=== PATIENT | female | born 1980 | race Caucasian/White ===

== ENCOUNTER 2022-04-25 08:00 | Outpatient (CLI) | payer OTHER ==
[2022-04-25 14:23] LABS: BILIRUBIN,URINE NEGATIVE (NEGATIVE); GLUCOSE, URINE (UA) NEGATIVE (NEGATIVE); KETONES,URINE (UA) NEGATIVE (NEGATIVE); LEUKOCYTE ESTERASE, URINE NEGATIVE (NEGATIVE); NITRITE,URINE NEGATIVE (NEGATIVE); OCCULT BLOOD,URINE NEGATIVE (NEGATIVE); PROTEIN,URINE NEGATIVE (NEGATIVE); UROBILINOGEN,URINE 0.2 (NORMAL) E.U./dL (NORMAL)
[2022-04-25 14:36] LABS: BACTERIA,URINE Rare /HPF (None Seen); CLARITY,URINE CLOUDY (CLEAR); RBC,URINE 0-5 /HPF (0-5); SQUAMOUS EPITHELIAL CELL,UR MOD Squamous (<= Few)
[2022-04-25 22:15] LABS: BACTERIAL VAGINOSIS DNA NEGATIVE (NEGATIVE); CANDIDA GLABRATA DNA NEGATIVE (NEGATIVE); CANDIDA GROUP DNA NEGATIVE (NEGATIVE); CANDIDA KRUSEI DNA NEGATIVE (NEGATIVE); TRICHOMONAS VAGINALIS DNA NEGATIVE (NEGATIVE)
== END 2022-04-25 23:59 | disposition home or self-care (01) ==
LOC: LAB.S 08:00
PROVIDERS: ATTEND Physician Assistant Medical
DX: R39.15 Urgency of urination (principal); N89.8 Other specified noninflammatory disorders of vagina
CPT/HCPCS: 81001; 81514; 87086

== ENCOUNTER 2022-05-23 05:10 | Emergency (ER) | payer OTHER ==
[2022-05-23 05:22] VITALS: BP 158/82
[2022-05-23] MEDS ORDERED: BUPIVACAINE 0.5% PF 10 ML VIAL SUBQ STA (05:46)
[2022-05-23] MEDS ORDERED: BUPIVACAINE 0.5% PF 30 ML VIAL ONE (05:58)
--- NOTE | 2022-05-23 06:08 | ED Physician Documentation ---
History of Present Illness - Stated complaint Stated Complaint: DIARRHEA/FEMALE - Chief complaint Chief Complaint: Abd Pain - History obtained from History obtained from: Patient - History of Present Illness Timing: How many hours ago (48) - Additonal information Additional information: 41-year-old Brittany Fitch has developed acute diarrhea and she has had this for several days and she has developed a thrombosed hemorrhoid. She believes this started 48 hours ago. She is in tremendous pain. She believes she has been able to stay hydrated but she is not able to control the pain. She can feel a lump that is hard Review of Systems Constitutional: denies: Fever Nose: denies: Congestion Throat: denies: Sore throat Respiratory: denies: Cough GI: reports: Nausea, Diarrhea. denies: Abdominal Pain, Vomiting PD PAST MEDICAL HISTORY - Past Medical History Past Medical History: No Cardiovascular: None Respiratory: None Neuro: None Endocrine/Autoimmune: None GI: None SKIDDER OPERATOR: None : None HEENT: None Psych: None Musculoskeletal: None Derm: None - Past Surgical History Past Surgical History: Yes Ortho: Other /SKIDDER OPERATOR: section, Tubal ligation - Present Medications Home Medications: Ambulatory Orders Medication Instructions Recorded Confirmed HYDROcod/ACETAM 5/325 [Latham 5/325] 1 - 2 tablet PO Q6H PRN #14 tablet 05/23/22 - Allergies Allergies/Adverse Reactions: Allergies Allergy/AdvReac Type Severity Reaction Status Date / Time IV contrast dye AdvReac Anaphylaxis Uncoded 05/23/22 05:23 - Social History Does the pt smoke?: No Smoking Status: Never smoker Does the pt drink ETOH?: No Does the pt have substance abuse?: No - Immunizations Immunizations are current?: Yes - POLST Patient has POLST: No PD ED PE NORMAL - Vitals Vital signs reviewed: Yes (tachy and hypertensive ) - General General: Alert and oriented X 3, No acute distress, Well developed/nourished - HEENT HEENT: Atraumatic, PERRL, EOMI - Respiratory Respiratory: No respiratory distress - Rectal Rectal: Other (With Winnie and Mildred as counter sales person the patient's rectum is examined and she does have a thrombosed hemorrhoid at 12:00. The mass is firm and tender.) - Derm Derm: Normal color, Warm and dry, No rash - Extremities Extremities: No deformity, No edema - Neuro Neuro: Alert and oriented X 3, surveyor instrument assistant 2-12 intact, No motor deficit, No sensory deficit, Normal speech Eye Opening: Spontaneous Motor: Obeys Commands Verbal: Oriented GCS Score: 15 - Psych Psych: Normal mood, Normal affect Results - Vitals Vitals: Vital Signs - 24 hr 05/23/22 05/23/22 05:19 06:13 Temperature 36.4 C L Heart Rate 103 H Respiratory 17 17 Rate Blood Pressure 158/82 H O2 Saturation 96 Oxygen O2 Source Room air Procedures - General procedure General procedure: Thrombosed hemorrhoid: With povidine iodine the area is cleaned and with the use of 0.5% bupivicaine for anesthesia the hemorroid is injected from the outside margin radially. A #11 blade is used in incise the hemorrhoid radially. A curved hemostat is used to express the contents of the hemorrhoid and the internal portion of the hemorrhoid is cleaned. Hemostasis is achieved and the patient has some relief of pain. PD MEDICAL DECISION MAKING - ED course Complexity details: considered differential, d/w patient ED course: 41-year-old female with a thrombosed hemorrhoid is in significant pain we were able to use 1/2% bupivacaine and expressed the contents of the thrombosed hemorrhoid with some improvement in the patient's pain. Will provide some Latham for pain control. Departure - Departure Disposition: 01 Home, Self Care Clinical Impression: Thrombosed external hemorrhoid Condition: Stable Instructions: Hemorrhoids Thrombosed, ED Hemorrhoids Follow-Up: Elle Plascencia PA-C [Provider Admit Priv/Credential] - Prescriptions: HYDROcod/ACETAM 5/325 [Latham 5/325] 1 - 2 tablet PO Q6H PRN #14 tablet PRN Reason: Pain Comments: Brittany today it looks like you have had a thrombosed external hemorrhoid and usually procedure to remove the clot relieves the pain. We have provided some additional pain medication as this is usually still somewhat painful. It has been E scribed to the [facility] in [place].
[2022-05-23] MEDS ORDERED: HYDROcod/ACET 5/325 Prepack 4 PO STA (06:27)
--- OUTSIDE RECORDS SUMMARY | 2022-05-24 16:21 | EXTERNAL MEDICAL SUMMARY RPT | Continuity of Care Document ---
:1980 Author Organization [facility] Address [address] [place] [address] Phone Allergies No information. Encounters No information. Functional Status No information. Immunizations No information. Medications No information. Problems No information. Procedures date description facility +0000 POC URINALYSIS DIP [facility] Results/Labs No information. Social History date description facility +0000 Never smoker [facility] [place] Vital Signs date measurement value units [id number]+0000 BMI BMI 51.09 kg/m2 [id number]+0000 BP_diastolic BP_diastolic 86 mm[H g] 54904068941343+0000 BP_systolic BP_systolic 140 mm[Hg] 85173732672401+0000 heart_rate heart_rate 77 /min 53959444920146+0000 height_metric height_metric 170.18 cm 46919200101355+0000 height_standard height_standard 67 in [id number]+0000 respiration_rate respiration_rate 15 /min 70144129697240+0000 temperature_metric temperature_metric 36.44 C [id number]+0000 temperature_standard temperature_standard 9 7.6 F [id number]+0000 weight_metric weight_metric 147.42 kg [id number]+0000 weight_standard weight_standard 325 lb
== END 2022-05-23 06:39 | disposition home or self-care (01) ==
LOC: ED 05:10
DX: K64.5 Perianal venous thrombosis (principal)
CPT/HCPCS: 46083

== ENCOUNTER 2023-11-13 13:54 | Outpatient (CLI) | payer OTHER ==
--- NOTE | 2023-11-14 10:19 | Mammography Report ---
BILATERAL FIRST EVER DIGITAL SCREENING MAMMOGRAM 3D/2D WITH EXAGGERATED CC: 11/13/2023 CLINICAL: Baseline exam. Routine screening. Family history of breast cancer. No prior exams were available for comparison. There are scattered areas of fibroglandular density in both breasts (category b / 25%-50% glandular t issue). No significant masses, calcifications, or other findings are seen in either breast. IMPRESSION: NEGATIVE There is no mammographic evidence of malignancy. A 1 year screening mammogram is recommended. Based on the Tyrer Cuzick model (a risk assessment model) the patients lifetime risk is 6.1% and her 10 year risk is 0.8%. According to the ACR, ACS, and NCCN guidelines, an annual breast MRI exam rossi g with mammogram is recommended if the patients lifetime risk is 20% or greater. This exam was interpreted at Station ID: [id number]. NOTE: For mammograms, a report in lay terms will be sent to the patient. Approximately 15% of breast malignancies will not be visualized mammographically. In the management of a palpable breast mass, a negative mammogram must not discourage biopsy of a clinically suspicious lesion. Electronically Signed By: Annie Craig M.D., PH.D eb/wan:11/14/2023 00:36:55 letter sent: No_Letter ACR BI-RADS Category 1: Negative 3341F PARENCHYMAL PATTERN: (A) - The breast(s) demonstrate(s) scattered fibroglandular densities. BI-RADS CATEGORY: (1) - 1 Mammogram 20241113 1 year screening LATERALITY: (B)
== END 2023-11-13 13:55 | disposition home or self-care (01) ==
LOC: DI.S 13:54
PROVIDERS: ATTEND Physician Assistant Medical
DX: Z12.31 Encounter for screening mammogram for malignant neoplasm of breast (principal); R92.323 Mammographic fibroglandular density, bilateral breasts

== ENCOUNTER 2024-02-12 08:32 | Outpatient (CLI) | payer BC ==
[2024-02-12 14:56] LABS: BASOPHILS # (AUTO) 0.1 10^3/uL (0.0-0.1); BASOPHILS % (AUTO) 1.1 %; EOSINOPHILS # (AUTO) 0.2 10^3/uL (0.0-0.7); EOSINOPHILS % (AUTO) 3.2 %; HCT - HEMATOCRIT 44.8 % (37.0-47.0); HGB - HEMOGLOBIN 14.1 g/dL (12.0-16.0); LYMPHOCYTES # (AUTO) 2.7 10^3/uL (1.5-3.5); LYMPHOCYTES % (AUTO) 37.8 %; MEAN CORPUSCULAR HEMOGLOBIN 27.8 pg (27.0-31.0); MEAN CORPUSCULAR HGB CONC 31.5 g/dL (32.0-36.0); MEAN CORPUSCULAR VOLUME 88.4 fL (81.0-99.0); MEAN PLATELET VOLUME 10.1 fL (7.9-10.8); MONOCYTES # (AUTO) 0.5 10^3/uL (0.0-1.0); MONOCYTES % (AUTO) 7.1 %; NEUTROPHILS # (AUTO) 3.6 10^3/uL (1.5-6.6); NEUTROPHILS % (AUTO) 50.7 %; PLT - PLATELET COUNT 294 10^3/uL (130-450); RED BLOOD COUNT 5.07 10^6/uL (4.20-5.40); RED CELL DISTRIBUTION WIDTH 12.5 % (12.0-15.0); WHITE BLOOD COUNT 7.1 x10^3/uL (4.8-10.8)
[2024-02-12 15:31] LABS: ALBUMIN 3.9 g/dL (3.2-5.5); ALBUMIN/GLOBULIN RATIO 1.3 (1.0-2.2); ALKALINE PHOSPHATASE 79 IU/L (42-121); ALT ALANINE AMINOTRANSFERASE 19 IU/L (10-60); AST ASPARTATE AMINOTRANSFERASE 16 IU/L (10-42); BILIRUBIN,TOTAL 0.4 mg/dL (0.2-1.0); BUN - BLOOD UREA NITROGEN 11 mg/dL (6-20); CALCIUM 9.6 mg/dL (8.5-10.3); CARBON DIOXIDE - CO2 25 mmol/L (21-32); CHLORIDE 106 mmol/L (101-111); CHOL/HDL RATIO 3.4 (<4.4); CHOLESTEROL 169 mg/dL; CREATININE 0.6 mg/dL (0.6-1.3); GFR - MDRD 110 (>89); GLUCOSE 97 mg/dL (74-104); HDL CHOLESTEROL 50 mg/dL; LDL CHOLESTEROL,CALCULATED 100 mg/dL; POTASSIUM 4.1 mmol/L (3.5-4.5); SODIUM 136 mmol/L (135-145); TRIGLYCERIDES 95 mg/dL (48-352); VLDL CHOLESTEROL 19 mg/dL
[2024-02-12 15:37] LABS: THYROID STIMULATING HORMONE 1.75 uIU/mL (0.34-5.60)
[2024-02-12 22:19] LABS: ESTIMATED AVERAGE GLUCOSE 103 mg/dL (70-100); HEMOGLOBIN A1c% 5.2 % (4.27-6.07)
== END 2024-02-12 08:33 | disposition home or self-care (01) ==
LOC: LAB.S 08:32
PROVIDERS: ATTEND Physician Assistant Medical
DX: Z13.9 Encounter for screening, unspecified (principal)
CPT/HCPCS: 36415; 80053; 80061; 83036; 83721; 84443; 85025

== ENCOUNTER 2024-06-29 08:00 | Outpatient (CLI) | payer BC ==
--- NOTE | 2024-06-30 18:20 | XRAY Report ---
PROCEDURE: Hand 3+V LT INDICATIONS: FINGER PAIN IN LEFT HAND TECHNIQUE: 3 views of the hand(s) acquired. COMPARISON: None. FINDINGS: Bones: No fractures or dislocations. No suspicious bony lesions. Soft tissues: No suspicious soft tissue calcifications or masses. IMPRESSION: No acute bony abnormality. Reviewed by: Zaid Melton MD on 06/30/2024 6:19 PM PDT Approved by: Zaid Melton MD on 06/30/2024 6:19 PM PDT Station ID: [id number]
--- NOTE | 2024-06-30 18:21 | XRAY Report ---
PROCEDURE: Wrist 3+V LT INDICATIONS: PAIN IN LEFT WRIST TECHNIQUE: 3 views of the wrist were acquired. COMPARISON: None. FINDINGS: Bones: No fractures or dislocations. No suspicious bony lesions. Soft tissues: No suspicious soft tissue calcifications or masses. IMPRESSION: No acute bony abnormality. Reviewed by: Zaid Melton MD on 06/30/2024 6:19 PM PDT Approved by: Zaid Melton MD on 06/30/2024 6:19 PM PDT Station ID: [id number]
== END 2024-06-29 23:59 | disposition home or self-care (01) ==
LOC: DI.S 08:00
PROVIDERS: ATTEND Registered Nurse
DX: M25.532 Pain in left wrist (principal); M79.645 Pain in left finger(s)